=== PATIENT | female | born 1950 | race Caucasian/White ===

== ENCOUNTER 2016-06-08 16:47 | Emergency (ER) | payer BC, OTHER ==
[2016-06-08 17:53] VITALS: BP 139/68
--- NOTE | 2016-06-08 19:58 | RAD ---
INDICATION: Fever. Cough, wheezing. Asthma. History of varicella pneumonia. Headache. COMPARISON: February 16, 2013 CT. TECHNIQUE: Dual energy PA and routine lateral views of the chest were obtained. REPORT: Moderate coarsening and rarefaction of the interstitial markings. Multiple bilateral calcified unchanged from the 2013 CT. Negative for alveolar consolidation. Clear pleural spaces. The heart, pulmonary vasculature, and mediastinal contours are unremarkable. Anterior C5-C7 cervical fusion hardware. IMPRESSION: Stigmata of prior granulomatous disease and chronic obstructive pulmonary disease. No evidence for pneumonia.
[2016-06-08] MEDS ORDERED: DOXYcycline CAP(*) 100 MG PO ONE (20:10)
--- NOTE | 2016-06-08 20:24 | UC ---
Throat Pain/Nasal Girish HPI - HPI Summary HPI Summary: FOUR DAYS OF COUGH AND SINUS CONGEESTION AND RIGHT SIDED FACIAL PRESSURE. HEAVY SMOKER WITH HISTORY OF PNEUMONIA AND GRANULOMATOUS DISEASE. NO KNOWN FEVER. - History of Current Complaint Chief Complaint: UCRespiratory Stated Complaint: SINUS PROBLEMS Time Seen by Provider: 06/08/16 19:16 Hx Obtained From: Patient Hx Last Menstrual Period: hysterectomy Onset/Duration: Gradual Onset, Lasting Days, Worse Since - TODAY Severity: Moderate Cough: Nonproductive Associated Signs & Symptoms: Positive: Hoarseness, Sinus Discomfort, Nasal Discharge - Epiglottits Risk Factors Epiglottis Risk Factors: Negative - Allergies/Home Medications Allergies/Adverse Reactions: Allergies Allergy/AdvReac Type Severity Reaction Status Date / Time Adhesive Tape Allergy Blisters Verified 04/02/12 10:42 Aspirin Allergy FULL BODY Verified 04/02/12 10:42 RASH Indomethacin [From Indocin] Allergy gi bleed Verified 02/16/13 09:34 Metformin Allergy CHRONIC Verified 04/02/12 10:42 DIARRHEA Prochlorperazine Allergy DYSTONIC Verified 04/02/12 10:42 [From Compazine] Home Medications: Home Medications Cholecalciferol TAB* [Vitamin D TAB*] 06/08/16 [History] DULoxetine DR CAP* [Cymbalta CAP*] 06/08/16 [History] Diazepam TAB(*) [Valium TAB(*)] 06/08/16 [History] Misc Natural Products [Osteo Bi-Flex Joint Shiel] 06/08/16 [History] Oxycodone TAB(NF) [Oxycodone HCl 10 MG] 06/08/16 [History] amLODIPine TAB* [Norvasc TAB*] 06/08/16 [History] predniSONE TAB* [Deltasone TAB*] 06/08/16 [History] PMH/Surg Hx/FS Hx/Imm Hx Previously Healthy: Yes Endocrine History Of: Reports: Diabetes - TYPE 2 OF 07/01/13 NOT TAKING MEDICATION FOR IT Cardiovascular History Of: Reports: Hypertension - meds Denies: Cardiac Disorders, Pacemaker/ICD Respiratory History Of: Reports: Asthma - with uri, Bronchitis Denies: COPD GI/ History Of: Denies: Renal Disease Neurological History Of: Reports: Migraine - OPTHALMIC R/T CERVICAL SPASM Psychological History Of: Reports: Depression - ON MEDICATION - Surgical History Surgical History: Yes Surgery Procedure, Year, and Place: APPENDIX, PARTIAL HYSTERECTOMY, , LEFT ARM FX WITH PLATE IN IT, TUBAL, COMPLETE TEETH REMOVAL,CSP FUSION04/04 - Family History Known Family History: Positive: Respiratory Disease - Social History Occupation: Retired Lives: With Family Alcohol Use: None Substance Use Type: None, Prescribed Smoking Status (MU): Heavy Every Day Tobacco Smoker Cessation Counseling: Counseled 10+ Min Review of Systems Constitutional: Negative Skin: Negative Eyes: Negative ENT: Ear Ache, Nasal Discharge Respiratory: Cough Cardiovascular: Negative Gastrointestinal: Negative Genitourinary: Negative Motor: Negative Neurovascular: Negative Musculoskeletal: Negative Neurological: Negative Psychological: Negative All Other Systems Reviewed And Are Negative: Yes Physical Exam Triage Information Reviewed: Yes Appearance: Well-Appearing, No Pain Distress, Well-Nourished Vital Signs: Initial Vital Signs Temp 97.4 F 06/08/16 17:42 Pulse 92 06/08/16 17:42 Resp 18 06/08/16 17:42 BP 139/68 06/08/16 17:42 Pulse Ox 94 06/08/16 17:42 Vital Signs Reviewed: Yes Eye Exam: Normal Eyes: Positive: Conjunctiva Clear ENT: Positive: Hearing grossly normal, Pharynx normal, Pharyngeal erythema, Nasal congestion, TM dull Dental Exam: Normal Neck exam: Normal Neck: Positive: Supple, Nontender, No Lymphadenopathy Respiratory Exam: Other - COUGH Respiratory: Positive: Chest non-tender, Normal breath sounds, No respiratory distress, No accessory muscle use, Wheezing Cardiovascular Exam: Normal Cardiovascular: Positive: RRR, No Murmur, Pulses Normal Abdominal Exam: Normal Abdomen Description: Positive: Nontender, No Organomegaly Musculoskeletal Exam: Normal Musculoskeletal: Positive: Strength Intact, ROM Intact Neurological Exam: Normal Psychological Exam: Normal Psychological: Positive: Normal Response To Family Skin Exam: Normal Throat Pain/Nasal Course/Dx - Differential Dx/Diagnosis Differential Diagnosis/HQI/PQRI: Pharyngitis, Sinusitis, URI Provider Diagnoses: SINUSITIS. BRONCHITIS. COPD. HISTORY OF GRANULOMATOUS DISEASE Discharge - Discharge Plan Condition: Stable Disposition: HOME Prescriptions: DOXYcycline CAP(*) [DOXYcycline 100MG CAP(*)] 100 mg PO BID #20 cap Patient Education Materials: How to Stop Smoking (ED), Sinusitis (ED), Acute Bronchitis (ED), COPD (Chronic Obstructive Pulmonary Disease) (ED) Referrals: Midura,Moises T, MD [Primary Care Provider] -
== END 2016-06-08 20:29 | disposition home or self-care (01) ==
LOC: UCEAST 16:47
DX: J44.0 Chronic obstructive pulmonary disease with (acute) lower respiratory infection (principal); J20.9 Acute bronchitis, unspecified; J32.9 Chronic sinusitis, unspecified; I10 Essential (primary) hypertension; J45.909 Unspecified asthma, uncomplicated; F17.210 Nicotine dependence, cigarettes, uncomplicated
CPT/HCPCS: 71020; 99212; A9270-GY; G0463

== ENCOUNTER 2017-05-05 20:06 | Emergency (ER) | payer BC, MEDICARE ==
[2017-05-05] MEDS ORDERED: Carisoprodol TAB* 350 MG PO ONE (20:57)
[2017-05-05] MEDS ORDERED: HYDROcodone/ACETAMIN 5-325 MG* 1 TAB PO ONE (20:57)
--- NOTE | 2017-05-05 21:10 | ED ---
Back Pain - HPI Summary HPI Summary: Patient fell in driveway this evening---hit head and back and twisted left knee in the fall---patient reports no loc. but does have an acute exacerbation of her chronic neck and back pain and well as left knee pain-- - History of Current Complaint Chief Complaint: EDNeckComplaint Stated Complaint: FALL WITH INJURIES Time Seen by Provider: 05/05/17 20:45 Hx Obtained From: Patient Hx Last Menstrual Period: hysterectomy Onset/Duration: Sudden Onset, Lasting Hours, Still Present Onset/Duration: Traumatic - fall in drive way Timing: Constant Back Pain Location: Is Discrete @ - lumbar and thorasic spine Severity Initially: Moderate Severity Currently: Moderate Pain Intensity: 6 Pain Scale Used: 0-10 Numeric Character: Aching, Stiffness Aggravating Symptom(s): Movement Alleviating Symptom(s): Nothing Associated Signs And Symptoms: Positive: Negative Related History: Similar Episode Dx As, Previous Back Injury - Allergies/Home Medications Allergies/Adverse Reactions: Allergies Allergy/AdvReac Type Severity Reaction Status Date / Time Adhesive Tape Allergy Blisters Verified 04/02/12 10:42 aspirin Allergy Rash And Verified 05/05/17 20:17 Itching indomethacin [From Indocin] Allergy GI Upset Verified 05/05/17 20:17 metformin Allergy Diarrhea Verified 05/05/17 20:17 prochlorperazine Allergy Dizziness Verified 05/05/17 20:18 [From Compazine] PMH/Surg Hx/FS Hx/Imm Hx Previously Healthy: No Endocrine/Hematology History: Reports: Hx Diabetes - TYPE 2 OF 07/01/13 NOT TAKING MEDICATION FOR IT Cardiovascular History: Reports: Hx Hypertension - meds, Hx Peripheral Vascular Disease - BILATERAL LEGS VARICOSE VEINS Denies: Hx Pacemaker/ICD Respiratory History: Reports: Hx Asthma - with uri, Other Respiratory Problems/ Disorders - HX PNEUMONIA (caused by varicella), LUNG SCARRING, AND LEGIONNAIRES DISEASE Denies: Hx Chronic Obstructive Pulmonary Disease (COPD) History: Denies: Hx Dialysis, Hx Renal Disease Sensory History: Reports: Hx Contacts or Glasses - GLASSES Denies: Hx Hearing Aid Opthamlomology History: Reports: Hx Contacts or Glasses - GLASSES Neurological History: Reports: Hx Migraine - OPTHALMIC R/T CERVICAL SPASM Psychiatric History: Reports: Hx Depression - ON MEDICATION Denies: Hx Panic Disorder - Cancer History Hx Hematologic Symptoms: No Hx Chemotherapy: No - Surgical History Surgery Procedure, Year, and Place: APPENDIX, PARTIAL HYSTERECTOMY, , LEFT ARM FX WITH PLATE IN IT, TUBAL, COMPLETE TEETH REMOVAL,CSP FUSION04/04 Hx Anesthesia Reactions: No Infectious Disease History: No Infectious Disease History: Denies: Traveled Outside the [place] in Last 30 Days - Family History Known Family History: Positive: Respiratory Disease - Social History Occupation: Retired Lives: Alone Alcohol Use: None Substance Use Type: Reports: None, Prescribed Substance Use Comment - Amount & Last Used: narcotics Hx Tobacco Use: Yes Smoking Status (MU): Heavy Every Day Tobacco Smoker Cessation Counseling: Counseled 3+Min - 10 Min Review of Systems Constitutional: Negative Eyes: Negative ENT: Negative Cardiovascular: Negative Respiratory: Negative Gastrointestinal: Negative Genitourinary: Negative Positive: Arthralgia, Myalgia Skin: Negative Neurological: Negative Psychological: Normal All Other Systems Reviewed And Are Negative: Yes Physical Exam Triage Information Reviewed: Yes Vital Signs On Initial Exam: Initial Vitals Temp Pulse Resp BP Pulse Ox 97.3 F 91 16 155/70 94 05/05/17 20:14 05/05/17 20:14 05/05/17 20:14 05/05/17 20:14 05/05/17 20:14 Vital Signs Reviewed: Yes Appearance: Positive: Well-Nourished, Pain Distress - mild, Obese Skin: Positive: Warm, Skin Color Reflects Adequate Perfusion, Dry Head/Face: Positive: Normal Head/Face Inspection Eyes: Positive: Normal, EOMI, FERN, Conjunctiva Clear ENT: Positive: Normal ENT inspection, Hearing grossly normal, Pharynx normal, TMs normal, Uvula midline. Negative: Nasal congestion, Tonsillar swelling, Tonsillar exudate, Trismus, Muffled voice, Hoarse voice Neck: Positive: Supple, Tenderness @ - cervical thorasic area Respiratory/Lung Sounds: Positive: Clear to Auscultation, Breath Sounds Present Cardiovascular: Positive: Normal, RRR, Pulses are Symmetrical in both Upper and Lower Extremities, S1, S2 Abdomen Description: Positive: Nontender, No Organomegaly, Soft Bowel Sounds: Positive: Present Neurological: Positive: Normal, Sensory/Motor Intact, Alert, Oriented to Person Place, Time, CN Intact II-III, Facial Symmetry Psychiatric: Positive: Normal AVPU Assessment: Alert - [place] Coma Scale Best Eye Response: 4 - Spontaneous Best Motor Response: 6 - Obeys Commands Best Verbal Response: 5 - Oriented Coma Scale Total: 15 Diagnostics - Vital Signs Vital Signs Temp Pulse Resp BP Pulse Ox 05/05/17 20:14 97.3 F 91 16 155/70 94 - Laboratory Lab Statement: Any lab studies that have been ordered have been reviewed, and results considered in the medical decision making process. - Radiology No standard instances Xray Interpretation: No Acute Changes Radiology Interpretation Completed By: Radiologist - CT No standard instances CT Interpretation: No Acute Changes CT Interpretation Completed By: Radiologist Re-Evaluation - Re-Evaluation First Eval Change: Unchanged - i-stop checked report [id number] which confirms rx for soma 4 times and and hydrocode 2 po qid consistantly rx'd by Dr. English Back Pain Course/Dx - Course Assessment/Plan: continue pain meds as prescribed, follow blood pressure and continued pain with pcp, return to ed for worsening symptoms - Diagnoses Provider Diagnoses: Contusion, Hypertension not at goal Discharge - Discharge Plan Condition: Stable Disposition: HOME Patient Education Materials: Ibuprofen (By mouth), Contusion in Adults (ED), Hypertension (ED), R.I.C.E. Treatment (ED) Referrals: Moises English MD [Primary Care Provider] - 3 Days
--- NOTE | 2017-05-05 22:11 | RAD ---
INDICATION: Back pain after a fall in a patient with chronic back pain and history of cervical spine fusion TECHNIQUE: 6 views of the cervical spine, 4 views of the thoracic spine and 5 views of the lumbar spine were obtained. FINDINGS: Plate-screw fixation is seen anteriorly adjacent to the C5, 6 and 7 vertebral bodies. There is straightening of the normal cervical lordosis. The vertebral bodies are otherwise appropriately aligned. Degenerative changes of the thoracic spine includes loss of intervertebral disc height. The vertebral bodies are appropriately aligned in the AP and lateral projections. Degenerative changes of the lumbar spine includes loss of intervertebral disc height. The vertebral bodies are otherwise intact and appropriately aligned. Incidentally noted is coarse calcification of the lower abdominal aorta. IMPRESSION: Degenerative changes of the spine without radiographically apparent acute fracture or dislocation. If the patient's symptoms persist, follow-up imaging is recommended.
--- NOTE | 2017-05-05 22:12 | RAD ---
INDICATION: Left knee pain after a fall COMPARISON: None TECHNIQUE: 4 view radiograph of the left knee. FINDINGS: The visualized bones are well-corticated and properly aligned. Degenerative changes of the left knee include narrowing of the lateral compartment with marginal osteophyte formation. There is no radiographic evidence of joint effusion. There is no acute fracture, dislocation or other focal bony abnormality. IMPRESSION: Degenerative changes of the left knee without radiographically apparent acute fracture or dislocation. If the patient's symptoms persist, follow-up imaging is recommended.
[2017-05-05 23:27] VITALS: BP 147/79
--- NOTE | 2017-05-06 07:16 | RAD ---
INDICATION: Head injury. COMPARISON: Comparison is made with a prior CT of the brain from April 19, 2007. TECHNIQUE: Contiguous axial sections of the brain were obtained from the skull base to the vertex without contrast. FINDINGS: The ventricles, cisterns and sulci are within normal limits. No significant focal abnormality or mass effect is seen. There is no evidence for hemorrhage. No significant focal osseous abnormality is seen. The visualized portion of the paranasal sinuses and mastoid air cells appear clear. IMPRESSION: NO EVIDENCE FOR ACUTE INTRACRANIAL ABNORMALITY.
== END 2017-05-05 23:20 | disposition home or self-care (01) ==
LOC: ED 20:06
DX: S09.90XA Unspecified injury of head, initial encounter (principal); M54.9 Dorsalgia, unspecified; S89.92XA Unspecified injury of left lower leg, initial encounter; W19.XXXA Unspecified fall, initial encounter; Y92.480 Sidewalk as the place of occurrence of the external cause; G89.29 Other chronic pain; M47.816 Spondylosis without myelopathy or radiculopathy, lumbar region; M47.814 Spondylosis without myelopathy or radiculopathy, thoracic region; F17.200 Nicotine dependence, unspecified, uncomplicated; Z88.8 Allergy status to other drugs, medicaments and biological substances
CPT/HCPCS: 70450; 72050; 72070; 72110; 99282; A9270-GY

== ENCOUNTER 2017-11-15 14:45 | Emergency (ER) | payer MEDICARE ==
--- NOTE | 2017-11-15 14:51 | UC ---
Complaint Female HPI - HPI Summary HPI Summary: 67 yo female presents with urinary burning, urgency, and frequency since yesterday. She tells me that when she feels the urge to urinate she will need to immediately hurry to the bathroom to go because she has difficulty holding it. There have been two instances since yesterday where she has lost control of her bladder due to this. When she does urinate - toward the end of the stream she will feel burning and stinging sensation. She does have a history of chronic low back pain and tells me that, according to her MRI about a month ago , she has severe spinal stenosis around her L5 region. She is currently being followed by pain management and has an appointment to see neurosurgery in November for further evaluation. She does not feel that her pain or numbness is increased. Denies fever, chills, abdominal pain, n/v/d/c, hematuria, flank pain, saddle anesthesia, or loss of bowel control. - History Of Current Complaint Stated Complaint: FREQ URINATION Time Seen by Provider: 11/15/17 14:50 Hx Obtained From: Patient Hx Last Menstrual Period: hysterectomy Onset/Duration: Sudden Onset Severity Initially: Mild Severity Currently: Mild Pain Intensity: 1 Pain Scale Used: 0-10 Numeric - Allergies/Home Medications Allergies/Adverse Reactions: Allergies Allergy/AdvReac Type Severity Reaction Status Date / Time Adhesive Tape Allergy Blisters Verified 11/15/17 14:52 aspirin Allergy Rash And Verified 11/15/17 14:52 Itching indomethacin [From Indocin] Allergy GI Upset Verified 11/15/17 14:52 metformin Allergy Diarrhea Verified 11/15/17 14:52 prochlorperazine Allergy Dizziness Verified 11/15/17 14:52 [From Compazine] Home Medications: Home Medications HYDROcodone/ACETAMIN 5-325 MG* [[place] 5-325 TAB*] 2 tab PO Q4HR 11/15/17 [ History Confirmed 11/15/17] PMH/Surg Hx/FS Hx/Imm Hx - Additional Past Medical History Additional PMH: Chronic LBP Cardiovascular History: Hypertension Psychological History: Anxiety - Surgical History Surgical History: Yes Surgery Procedure, Year, and Place: APPENDIX, PARTIAL HYSTERECTOMY, , LEFT ARM FX WITH PLATE IN IT, TUBAL, COMPLETE TEETH REMOVAL,CSP FUSION04/04 - Family History Known Family History: Positive: Respiratory Disease - Social History Lives: With Family Alcohol Use: None Substance Use Type: Prescribed Substance Use Comment - Amount & Last Used: narcotics Smoking Status (MU): Heavy Every Day Tobacco Smoker Review of Systems Constitutional: Negative Skin: Negative Respiratory: Negative Cardiovascular: Negative Gastrointestinal: Negative Genitourinary: Dysuria, Frequency, Urgency Neurological: Negative Psychological: Negative All Other Systems Reviewed And Are Negative: Yes Physical Exam - Summary Physical Exam Summary: GENERAL: NAD. WDWN. No pain distress. SKIN: No rashes, sores, lesions, or open wounds. NECK: Supple. Nontender. No lymphadenopathy. CHEST: CTAB. No r/r/w. No accessory muscle use. Breathing comfortably and in no distress. CV: RRR. Without m/r/g. Pulses intact. Cap refill <2seconds ABDOMEN: Soft. NTTP. No distention or guarding. No CVA tenderness. Bowel sounds present MSK: Strength symmetric B/L LEs including dorsiflexion and plantar flexion. NEURO: Alert. Sensations symmetric and intact L3-S1. CN II-XII grossly intact. PSYCH: Age appropriate behavior. Triage Information Reviewed: Yes Vital Signs: Vital Signs: Temp Pulse Resp BP Pulse Ox 96.6 F 90 18 164/95 99 11/15/17 14:48 11/15/17 14:48 11/15/17 14:48 11/15/17 14:48 11/15/17 14:48 Laboratory Tests 11/15/17 15:07 POC Urine Color [place] POC Urine Clarity Cloudy POC Urine pH 6.5 POC Ur Specif [place] >= 1.030 POC Urine Protein 3+ A POC Ur Glucose (UA) Negative POC Urine Ketones Trace A POC Urine Blood 3+ A POC Urine Nitrite Positive A POC Urine Bilirubin 1+ A POC Urine Urobilinogen 1.0 POC U Leukocyte Esteras 1+ A Vital Signs Reviewed: Yes Complaint Female Dx - Course Course Of Treatment: Pt declined rectal exam for sphincter tone. UA with signs of infection. I had a long conversation with the pt that her urinary symptoms and incontinence could be explained by her UTI, but made her aware of red flag symptoms of cauda equina syndrome and if she were to develop any of these or if her symptoms persist despite anbx treatment - should call 911 or go to ED. She was agreeable to the plan. - Differential Dx/Diagnosis Provider Diagnoses: UTI. Urinary incontinence. Low back pain Discharge - Sign-Out/Discharge Documenting (check all that apply): Patient Departure All imaging exams completed and their final reports reviewed: No Studies - Discharge Plan Condition: Stable Disposition: HOME Prescriptions: Ciprofloxacin HCl [Cipro 500 MG TAB] 500 mg PO BID #10 tab Patient Education Materials: Urinary Tract Infection in Women (ED) Referrals: Moises English MD [Primary Care Provider] - Additional Instructions: If you develop a fever, shortness of breath, chest pain, new or worsening symptoms - please call your PCP or go to the ED. Your blood pressure was high at todays visit. Please see your primary provider within 4 weeks for recheck and re-evaluation. 1) If you developed numbness or tingling in your groin region or if you develop loss of bowel function - please call 911 or go directly to the ER - Billing Disposition and Condition Condition: STABLE Disposition: Home
[2017-11-15 14:52] VITALS: BP 164/95
== END 2017-11-15 15:28 | disposition home or self-care (01) ==
LOC: UCEAST 14:45
DX: N39.0 Urinary tract infection, site not specified (principal); R32 Unspecified urinary incontinence; F17.200 Nicotine dependence, unspecified, uncomplicated; I10 Essential (primary) hypertension; Z91.09 Other allergy status, other than to drugs and biological substances; Z88.6 Allergy status to analgesic agent; Z88.8 Allergy status to other drugs, medicaments and biological substances; M54.5 Low back pain
CPT/HCPCS: 81003; 87077; 87086; 87186; 99212; G0463

== ENCOUNTER 2019-06-17 11:01 | Emergency (ER) | payer MEDICARE, OTHER ==
--- NOTE | 2019-06-17 11:26 | ED ---
Respiratory - HPI Summary HPI Summary: 69 year old F presenting to [facility] with a chief complaint of hemoptysis since this morning. Patient reports a chronic cough for over 4 months with thick yellow phlegm. The patient rates the pain 2/10 in severity. Symptoms aggravated by nothing. Symptoms alleviated by nothing. Patient reports that she has been treated with multiple rounds of antibiotics including Doxycycline. She denies any fever, sore throat, vomiting, diarrhea, sick contacts, recent travel or immobilization, unilateral leg swelling, a history of blood clots, or being prescribed blood thinners. Medication list reviewed. Allergy list reviewed. Home Medications Medication Instructions Recorded Confirmed Type Albuterol HFA INHALER* 2 puff PO PRN 03/25/12 04/02/12 History Multivitamin 1 tab PO BEDTIME 03/25/12 04/02/12 History Soma 350 mg PO Q4H 03/25/12 04/02/12 History Zyrtec 1 tab PO BEDTIME 03/25/12 04/02/12 History Cholecalciferol TAB* [Vitamin D 1 tab PO WEEKLY 06/08/16 History TAB*] DULoxetine DR CAP* [Cymbalta CAP*] 1 tab PO DAILY 06/08/16 History Diazepam TAB(*) [Valium TAB(*)] 1 tab PO Q4HR PRN 06/08/16 History Oxycodone TAB(NF) [Oxycodone HCl 1 tab PO Q4HR PRN 06/08/16 History 10 MG] amLODIPine TAB* [Norvasc TAB*] 1 tab PO DAILY 06/08/16 History Ciprofloxacin HCl [Cipro 500 MG 500 mg PO BID #10 tab 11/15/17 Rx TAB] HYDROcodone/ACETAMIN 5-325 MG* 2 tab PO Q4HR 11/15/17 11/15/17 History [[place] 5-325 TAB*] - History of Current Complaint Chief Complaint: EDShortnessOfBreath Stated Complaint: COUGHING UP BLOOD Time Seen by Provider: 06/17/19 11:09 Hx Obtained From: Patient Onset/Duration: Lasting Weeks Timing: Constant Current Severity: Mild Pain Intensity: 2 Character: Cough (Productive) Sputum Color: Yellow Aggravating Factor(s): Nothing Alleviating Factor(s): Nothing Associated Signs and Symptoms: Hemoptysis - Allergy/Home Medications Allergies/Adverse Reactions: Allergies Allergy/AdvReac Type Severity Reaction Status Date / Time Adhesive Tape Allergy Blisters Verified 06/17/19 11:12 aspirin Allergy Rash And Verified 06/17/19 11:12 Itching indomethacin [From Indocin] Allergy GI Upset Verified 06/17/19 11:12 metformin Allergy Diarrhea Verified 06/17/19 11:12 prochlorperazine Allergy Dizziness Verified 06/17/19 11:12 [From Compazine] Home Medications: Home Medications Cholecalciferol TAB* [Vitamin D TAB*] 1.25 mg PO WEEKLY 06/08/16 [History Confirmed 06/17/19] DULoxetine DR CAP* [Cymbalta CAP*] 30 mg PO DAILY 06/08/16 [History Confirmed ] Diazepam TAB(*) [Valium TAB(*)] 5 - 10 mg PO BID 06/08/16 [History Confirmed ] amLODIPine TAB* [Norvasc TAB*] 10 mg PO DAILY 06/08/16 [History Confirmed ] Carisoprodol TAB* [Soma TAB*] 350 mg PO QID PRN 06/17/19 [History Confirmed ] Cetirizine* [ZyrTEC 10 MG TAB*] 10 mg PO DAILY 06/17/19 [History Confirmed 06/16] DULoxetine CAP* [Cymbalta CAP*] 60 mg PO DAILY 06/17/19 [History Confirmed ] Docusate CAP* [Colace Cap*] 200 mg PO BID 06/17/19 [History Confirmed 06/17/19] Doxycycline TAB(NF) [Doxycycline TAB (NF)] 50 mg PO BID 06/17/19 [History Confirmed 06/17/19] Hydrocodone/Acetaminophen [Hydrocodone/Acetaminophen 10-325 mg] 1 tab PO Q4H PRN MDD 8 tabs 06/17/19 [History Confirmed 06/17/19] Levofloxacin TAB* [Levaquin TAB*] 500 mg PO DAILY 06/17/19 [History Confirmed ] Meloxicam(NF) [Mobic(NF)] 15 mg PO DAILY 06/17/19 [History Confirmed 06/17/19] Multivitamins/Minerals TAB* [Theragran/minerals TAB*] 1 tab PO DAILY 06/17/19 [ History Confirmed 06/17/19] Psyllium Husk [Sm Fiber] 400 mg PO BID 06/17/19 [History Confirmed 06/17/19] Rosuvastatin (NF) [Crestor (NF)] 5 mg PO BEDTIME 06/17/19 [History Confirmed ] SUMAtriptan TAB* [Imitrex TAB*] 50 mg PO ONCE PRN 06/17/19 [History Confirmed ] Turmeric 400 mg PO DAILY 06/17/19 [History Confirmed 06/17/19] glipiZIDE TAB* [Glucotrol TAB*] 5 mg PO BID 06/17/19 [History Confirmed 06/17/19 ] PMH/Surg Hx/FS Hx/Imm Hx Endocrine/Hematology History: Reports: Hx Diabetes Cardiovascular History: Reports: Hx Hypertension - meds, Hx Peripheral Vascular Disease - BILATERAL LEGS VARICOSE VEINS Denies: Hx Pacemaker/ICD Respiratory History: Reports: Hx Asthma - with uri, emphysema, Other Respiratory Problems/Disorders - HX PNEUMONIA (caused by varicella), LUNG SCARRING, AND LEGIONNAIRES DISEASE Denies: Hx Chronic Obstructive Pulmonary Disease (COPD) History: Denies: Hx Dialysis, Hx Renal Disease Sensory History: Reports: Hx Contacts or Glasses - GLASSES Denies: Hx Hearing Aid Opthamlomology History: Reports: Hx Contacts or Glasses - GLASSES Neurological History: Reports: Hx Migraine - OPTHALMIC R/T CERVICAL SPASM Psychiatric History: Reports: Hx Depression - ON MEDICATION Denies: Hx Panic Disorder - Cancer History Hx Hematologic Symptoms: No Hx Chemotherapy: No - Surgical History Surgery Procedure, Year, and Place: APPENDIX, PARTIAL HYSTERECTOMY, , LEFT ARM FX WITH PLATE IN IT, TUBAL, COMPLETE TEETH REMOVAL,CSP FUSION04/04 Hx Anesthesia Reactions: No Infectious Disease History: No Infectious Disease History: Denies: Traveled Outside the [place] in Last 30 Days - Family History Known Family History: Positive: Respiratory Disease - Social History Alcohol Use: None Substance Use Type: Reports: Prescribed Substance Use Comment - Amount & Last Used: pain medication Hx Tobacco Use: Yes Smoking Status (MU): Heavy Every Day Tobacco Smoker Review of Systems Negative: Fever Negative: Sore Throat Positive: Cough, Other - Hemoptysis Negative: Vomiting, Diarrhea All Other Systems Reviewed And Are Negative: Yes Physical Exam - Summary Physical Exam Summary: Constitutional: Well-developed, Well-nourished, Alert. (-) Distressed Skin: Warm, Dry HENT: Normocephalic; Atraumatic Eyes: Conjunctiva normal Neck: Musculoskeletal ROM normal neck. (-) JVD, (-) Stridor, (-) Tracheal deviation Cardio: Rhythm regular, rate normal, Heart sounds normal; Intact distal pulses; Radial pulses are 2+ and symmetric. (-) Murmur Pulmonary/Chest wall: Effort normal. (-) Respiratory distress, (-) Wheezes, (-) Rales Abd: Soft, (-) tenderness, (-) Distension, (-) Guarding, (-) Rebound Musculoskeletal: (-) Edema Lymph: (-) Cervical adenopathy Neuro: Alert, Oriented x3 Psych: Mood and affect Normal Triage Information Reviewed: Yes Vital Signs On Initial Exam: Initial Vitals Temp Pulse Resp BP Pulse Ox 97.3 F 96 18 166/86 98 06/17/19 11:09 06/17/19 11:09 06/17/19 11:09 06/17/19 11:09 06/17/19 11:09 Vital Signs Reviewed: Yes Procedures - Sedation Patient Received Moderate/Deep Sedation with Procedure: No Diagnostics - Vital Signs Vital Signs Temp Pulse Resp BP Pulse Ox 06/17/19 11:09 97.3 F 96 18 166/86 98 - Laboratory Result Diagrams: 06/17/19 11:32 06/17/19 11:32 Lab Statement: Any lab studies that have been ordered have been reviewed, and results considered in the medical decision making process. - Radiology Chest x-ray Radiology Interpretation Completed By: Radiologist Summary of Radiographic Findings: #. No evidence for pneumonia. #. Stigmata of prior granulomatous disease. ED physician has reviewed this report. Disposition - Course Course Of Treatment: Patient is here with small volume hemoptysis. Patient is overall well-appearing and does have chronic cough. Patient had blood work performed which was grossly unremarkable. Patient had a negative d-dimer for PE. Patient had negative chest x-ray for pneumonia. Patient was tested for covid 19 and given quarantine instructions - Diagnoses Provider Diagnoses: Suspected COVID-19 virus infection, Cough, Hemoptysis Discharge ED - Sign-Out/Discharge Documenting (check all that apply): Patient Departure - Discharge Plan Condition: Stable Disposition: HOME Patient Education Materials: Hemoptysis (ED), Acute Cough (ED) Forms: COVID-19 Tested & Isolation Referrals: Moises English MD [Primary Care Provider] - Additional Instructions: Return to the emergency department if you are coughing up a large volume of blood, feel like you are going to pass out, or have chest pain, a high fever, or any other concerning symptoms. You were seen in the emergency department for coronavirus rule out. The department of health will contact you within 24 hours. Due to the pandemic, you should stay in your house and self quarantine. See the separate quarantine paper for further instructions. You should wear a mask if you're outside of your personal room. We encourage handwashing as well as limited contact with other people including the elderly and the immunocompromised. If any studies were not completed at the time of discharge you will be called with the relevant results. Return to emergency department for severe trouble breathing, worsening or concerning symptoms It was a pleasure taking care of you today. - Billing Disposition and Condition Condition: STABLE Disposition: Home - Attestation Statements Document Initiated by Bridger: Yes Documenting Scribe: Maria Luisa Peace Provider For Whom Bridger is Documenting (Include Credential): Sharif Herrera MD Scribe Attestation: Maria Luisa Scott scribed for Sharif Herrera MD on 06/17/19 at 1385. Scribe Documentation Reviewed: Yes Provider Attestation: The documentation as recorded by the Maria Luisa renee accurately reflects the service I personally performed and the decisions made by me, Sharif Herrera MD Status of Scribe Document: Viewed
[2019-06-17 11:50] LABS: ABS Basophils 0.1 10^3/ul (0-0.2); ABS Eosinophils 0.6 10^3/ul (0-0.6); ABS Lymphocytes 2.6 10^3/ul (1.0-4.8); ABS Monocytes 0.7 10^3/ul (0-0.8); ABS Neutrophils 3.5 10^3/ul (1.5-7.7); Eosinophil % 8.4 %; Hematocrit 42 % (35-47); Hemoglobin 14.8 g/dL (12.0-16.0); Lymphocyte % 34.4 %; Mean Corpuscular HGB Conc 35 g/dL (31-36); Mean Corpuscular Hemoglobin 34 pg (27-31); Mean Corpuscular Volume 95 fL (80-97); Mean Platelet Volume 8.8 fL (7.4-10.4); Platelet Count 195 10^3/uL (150-450); Red Blood Count 4.39 10^6 /uL (3.70-4.87); Red Cell Distribution Width 13 % (10-15); White Blood Count 7.4 10^3/uL (3.5-10.8)
--- OUTSIDE RECORDS SUMMARY | 2019-06-17 11:51 | XMS REPORT | Continuity of Care Document ---
:1950 Author Organization [address] [place] [address] [place] [id number] Phone Care Team Providers Name Role Phone LORENA SAMUEL MD Unavailable Unavailable Allergies, Adverse Reactions, Alerts Substance Reaction Status PROCHLORPERAZINE MALEATE Active PROCHLORPERAZINE EDISYLATE Active prochlorperazine Active aspirin Active Medications Medication Instructions Dosage Effective Dates Status Comments (start - stop) hydrocodone 10 take 1 tablet by 1.00 tablet - Active mg-acetaminophen 325 oral route every 4 mg tablet - 6 hours as needed for pain Soma 350 mg tablet take 1 tablet by 350 MG - Active oral route 4 times every day and at bedtime glipizide 5 mg take 1 tablet by 5 MG - Active tablet oral route 2 times every day before meals duloxetine 60 mg take 1 capsule by 60 MG - Active capsule,delayed oral route every release day duloxetine 30 mg take 1 capsule by 30 MG - Active capsule,delayed oral route every release day amlodipine 10 mg take 1 tablet by 10 MG - Active tablet oral route every day meloxicam 15 mg take 1 tablet by 15 MG - Active tablet oral route every day doxycycline hyclate take 1 tablet by 100 MG - Active 100 mg tablet oral route 2 times every day Problems Condition Effective Dates (start - stop) Clinical Status Low back pain associated with a spinal disorder other than radiculopathy or spinal stenosis 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, lumbar region Spondyls w/o myelopathy or - radiculopathy, lumbosacr region Other intervertebral disc - displacement, lumbar region Other intervertebral disc - displacement, lumbosacral region Oth specific arthropathies, NEC, oth - site Spinal stenosis, lumbar region without - neurogenic sheila Procedures Procedure Date Procedure Unknown Results Test Name Date and Time Measure Units Reference Range Abnormal Flag Status Comments Unknown Encounters Encounter Practice Location Reason(s) Diagnoses Date Provider Providers Description For Visit Copied on Encounter 0001 - [facility] [employer], Management LORENA. [phone] [facility], [facility], [place], [place], [place] [address], [place], [place], tel: [phone] tel: [phone] 0001 - [facility] JOCELYN [employer], Neurosurgery associated with a 0-201 ADEKENDAL. 46 33-57 spinal disorder 9 [facility] other than [facility], radiculopathy or [facility] spinal [place], [place], stenosisSpondylos [phone], is w/o myelopathy tel: tel: or radiculopathy, [phone] lumbar regionSpondyls w/o myelopathy or radiculopathy, lumbosacr regionOther intervertebral disc displacement, lumbar regionOther intervertebral disc displacement, lumbosacral regionOth specific arthropathies, NEC, oth siteSpinal stenosis, lumbar region without neurogenic sheila Family History Family Member Diagnosis Age At Onset Unknown Immunizations Vaccine Date Status Comments Immunization Unknown Payers Payer name Insurance type Covered green party ID Authorization(s) Workers Compensation [id number] Social History Type Description Quantity Date Captured Comments Unknown Vital Signs Date / Height Weight BMI Pulse Blood Temperature Respiratory Body Head BMI Time: Rate Pressure Rate Surface Circumference percentile Area Unknown Chief Complaint And Reason For Visit No information Reason For Referral Reason For Referral Unknown Plan Of Care Date Type Action Status Referral Ordered: ordered LORENA SAMUEL MD -Pain Management (related to Low back pain associated with a spinal disorder other than radiculopathy or spinal stenosis) Referral Referred To: ordered LORENA SAMUEL MD [address] [facility] Floor 2 [place], [place], [facility] [phone] Ordered: Referrals: Pain Management. LORENA SAMUEL MD Date Type Problem Goal Intervention Status Start Date Unknown History Of Present Illness Encounter Date Complaint History Of Present Illness No information Functional Status Encounter Date Functional Assessment Cognitive Assessment Unknown Medications Administered Medication Instructions Dosage Effective Dates (start - stop) Status Comments Drug Treatment Unknown Instructions Date Instruction Additional Information Risks and benefits of new Related to Low back pain associated medication discussed. with a spinal disorder other than radiculopathy or spinal stenosis
--- OUTSIDE RECORDS SUMMARY | 2019-06-17 11:51 | XMS REPORT | Continuity of Care Document ---
:1950 Author Organization [facility] Address [address] [address] Phone Care Team Providers Name Role Phone [...] on Encounter 0001 - [facility] [employer], Management LORENA. [phone] [facility], [facility], [place], [place], [place] [address], [place], [place], tel: [phone] tel: [phone] 0001 - [facility] JOCELYN [employer], Neurosurgery associated with a 0-201 ADESH. 46 33-[address] [facility] other than [facility], radiculopathy or [facility] spinal [place], [place], stenosisSpondylos [phone], is w/o myelopathy tel: tel: or radiculopathy, [phone] lumbar regionSpondyls w/o myelopathy or radiculopathy, lumbosacr regionOther intervertebral disc displacement, lumbar regionOther intervertebral disc displacement, lumbosacral regionOth specific arthropathies, NEC, oth siteSpinal stenosis, lumbar region without neurogenic sheila Family History Family Member Diagnosis Age At Onset Unknown Immunizations Vaccine Date Status Comments Immunization Unknown Payers Payer name Insurance type Covered republican ID Authorization(s) Workers Compensation [id number] Social History Type Description Quantity Date Captured [...] Referred To: ordered LORENA SAMUEL MD [address] [facility] Floor 2 [place], [place], [facility] [phone] Ordered: Referrals: Pain Management. LORENA SAMUEL MD [...]
[2019-06-17 12:07] LABS: Albumin/Globulin Ratio 1.4 (1-3); BUN/Creatinine Ratio 29.2 (8-20); EGFR African American 109.7 (>60); EGFR Non-African American 90.6 (>60); Globulin 2.8 g/dL (2-4); Potassium 3.8 mmol/L (3.5-5.0); Total Bilirubin 0.3 mg/dL (0.2-1.0); Total Protein 6.8 g/dL (6.4-8.9)
[2019-06-17 12:23] LABS: Influenza A Molecular Negative (Negative); Influenza B Molecular Negative (Negative)
[2019-06-17 12:53] VITALS: BP 144/83
== END 2019-06-17 12:52 | disposition home or self-care (01) ==
LOC: ED 11:01
DX: R04.2 Hemoptysis (principal); Z79.899 Other long term (current) drug therapy; Z88.6 Allergy status to analgesic agent; E11.9 Type 2 diabetes mellitus without complications; I10 Essential (primary) hypertension; I73.9 Peripheral vascular disease, unspecified; F32.9 Major depressive disorder, single episode, unspecified; F17.210 Nicotine dependence, cigarettes, uncomplicated; Z20.828 Contact with and (suspected) exposure to other viral communicable diseases
CPT/HCPCS: 36415; 71045; 80053; 85025; 85379; 87635; 99283

== ENCOUNTER 2019-12-13 09:01 | Inpatient (IN) ==
[~2019-12-13 09:01] MED LIST: Buffered Lidocaine 1% SYRIN 1 ml INTRADERM ONE; Lactated Ringers 1000 ml BAG 1,000 ML IV SCH
[2019-12-13] MEDS ORDERED: ceFAZolin 2 GM PREMIX 2 GM/50 ML BAG ONE (09:15)
[2019-12-13] MEDS ORDERED: Buffered Lidocaine 1% SYRIN 1 ml INTRADERM ONE (09:15)
[2019-12-13] MEDS ORDERED: Propofol 10 MG/ML 20 ML BTL ONE ×2 (09:31→13:06)
[2019-12-13] MEDS ORDERED: Midazolam 2 mg/2 ml VIAL 1 mg/ml 2 ml VIAL (2 mg) ONE (09:31)
[2019-12-13] MEDS ORDERED: fentaNYL 100 mcg/2 ml 50 MCG/ML VIAL ONE ×2 (09:31→12:29)
[2019-12-13] MEDS ORDERED: Lidocaine 2% PF 5 ML VIAL ONE ×2 (09:32→11:32)
[2019-12-13] MEDS ORDERED: Dexamethasone IV 4 MG/ML VIAL 1 ml VIAL ONE (09:32)
[2019-12-13] MEDS ORDERED: Lidocaine 1% MPF 5 ML VIAL ONE (10:42)
[2019-12-13] MEDS ORDERED: ROPIVACAINE 5 MG/ML 30 ML BTL (0.5%) ONE ×2 (10:42→10:43)
[2019-12-13] MEDS ORDERED: Rocuronium 50 mg VIAL 10 mg/ml 5 ml VIAL (50 mg) ONE (11:32)
[2019-12-13] MEDS ORDERED: HYDROmorphone 1 MG/1 ML SYRINGE ONE ×3 (11:44→14:06)
[2019-12-13] MEDS ORDERED: Acetaminophen IV 1 GM/100ML 100 ML ONE (11:48)
[2019-12-13] MEDS ORDERED: Naloxone 0.4 mg VIAL 0.4 mg/ml 1 ml VIAL IV PRN (12:35)
[2019-12-13] MEDS ORDERED: DiMENhydriNATE IV 50 mg/ml 1 ml VIAL IV PUSH PRN (12:35)
[2019-12-13] MEDS ORDERED: DiMENhydriNATE IV 50 mg/ml 1 ml VIAL ONE (12:37)
[2019-12-13] MEDS ORDERED: diPHENhydraMINE 25 mg TAB PO PRN (13:12)
[2019-12-13] MEDS ORDERED: Magnesium Hydroxide LIQ 30 ML UDC PO PRN (13:12)
[2019-12-13] MEDS ORDERED: Ondansetron ODT 4 mg TAB 4 MG TAB PO PRN (13:12)
[2019-12-13] MEDS ORDERED: diPHENhydraMINE IV 50 MG/ML 1 ml VIAL (BENADRYL) IV PRN (13:12)
[2019-12-13] MEDS ORDERED: Lactulose 30 ml UDC PO PRN (13:12)
[2019-12-13] MEDS ORDERED: Ondansetron 4 mg VIAL 2 MG/ML 2 ml VIAL IV PRN (13:12)
[2019-12-13] MEDS ORDERED: oxyCODONE/Acetamin 5/325 mg TAB PO PRN (13:12)
[2019-12-13] MEDS ORDERED: ceFAZolin 1 GM ADVAN 1 GM in NS 0.9% 50 ML 50 ML IVPB SCH (14:00)
[2019-12-13] MEDS: HYDROmorphone 1 MG/1 ML SYRINGE IV PRN ×2 (14:06→14:12)
[2019-12-13] MEDS ORDERED: Morphine 4 MG/ML VIAL (1 ml) ONE (14:28)
[2019-12-13] MEDS: Morphine 2 MG/ML SYRINGE IV PRN ×3 (14:29→22:59)
[2019-12-13] MEDS ORDERED: Dextrose 50% Syringe 50 ml 25 GM/50 ML SYRINGE IV PUSH PRN (15:44)
[2019-12-13] MEDS: Lactated Ringers 1000 ml BAG 1,000 ML IV SCH (15:44)
[2019-12-13] MEDS ORDERED: Albuterol 2.5mg/3 ml (0.083%) NEB.SOLN INH PRN (15:55)
[2019-12-13] MEDS: Morphine ER 15 mg TAB ** extended release PO SCH (16:24)
[2019-12-13] MEDS: oxyCODONE/Acetamin 5/325 mg TAB PO PRN ×2 (19:34→23:54)
[2019-12-13] MEDS: Psyllium PAK PO SCH (20:47)
[2019-12-13] MEDS: ceFAZolin 1 GM ADVAN 1 GM in NS 0.9% 50 ML 50 ML IVPB SCH (20:53)
[2019-12-13] MEDS ORDERED: DULoxetine DR 30 mg CAP PO SCH (21:00)
[2019-12-13] MEDS ORDERED: DULoxetine DR 60 mg CAP PO SCH (21:00)
[2019-12-13] MEDS: Magnesium Hydroxide LIQ 30 ML UDC PO SCH (21:09)
[2019-12-13] MEDS: Varenicline 1 mg TAB (NF) PO SCH (21:09)
[2019-12-14] MEDS: Morphine ER 15 mg TAB ** extended release PO SCH (03:28)
[2019-12-14] MEDS: ceFAZolin 1 GM ADVAN 1 GM in NS 0.9% 50 ML 50 ML IVPB SCH ×2 (03:38→11:30)
[2019-12-14] MEDS: Lactated Ringers 1000 ml BAG 1,000 ML IV SCH (03:38)
[2019-12-14 06:55] LABS: Hematocrit 37 % (35-47); Mean Platelet Volume 8.6 fL (7.4-10.4); Platelet Count 200 10^3/uL (150-450)
[2019-12-14 07:09] LABS: BUN/Creatinine Ratio 21.1 (8-20); Calcium 8.8 mg/dL (8.6-10.3); EGFR African American 91.6 (>60); EGFR Non-African American 75.7 (>60)
[2019-12-14] MEDS: oxyCODONE/Acetamin 5/325 mg TAB PO PRN ×2 (07:22→11:28)
[2019-12-14] MEDS ORDERED: Vitamin THERAPEUTIC TAB PO SCH (09:00)
[2019-12-14] MEDS: Psyllium PAK PO SCH (09:14)
[2019-12-14] MEDS: Varenicline 1 mg TAB (NF) PO SCH (09:14)
[2019-12-14] MEDS: Magnesium Hydroxide LIQ 30 ML UDC PO SCH (09:15)
[2019-12-14 11:17] VITALS: BP 137/58
== END 2019-12-14 14:20 | disposition home health service (06) | DRG 470 ==
LOC: AA 09:01 → SSU 13:12
PROVIDERS: ADMIT Orthopaedic Surgery Adult Reconstructive Orthopaedic Surgery; ATTEND Orthopaedic Surgery Adult Reconstructive Orthopaedic Surgery

== ENCOUNTER 2021-05-13 12:47 | Inpatient (IN) ==
[2021-05-13] MEDS ORDERED: Albuterol 2.5mg/3 ml (0.083%) NEB.SOLN INH ONE (13:28)
[2021-05-13 13:54] LABS: Venous Bicarbonate HCO3 29.5 mmol/L (24-28)
[2021-05-13 14:00] LABS: ABS Eosinophils 0.3 10^3/ul (0-0.6); ABS Lymphocytes 0.9 10^3/ul (1.0-4.8); ABS Monocytes 0.8 10^3/ul (0-0.8); ABS Neutrophils 7.2 10^3/ul (1.5-7.7); Eosinophil % 2.9 %; Hematocrit 37 % (35-47); Hemoglobin 12.6 g/dL (12.0-16.0); Lymphocyte % 9.4 %; Mean Corpuscular HGB Conc 34 g/dL (31-36); Mean Corpuscular Hemoglobin 32 pg (27-31); Mean Corpuscular Volume 93 fL (80-97); Mean Platelet Volume 8.8 fL (7.4-10.4); Platelet Count 222 10^3/uL (150-450); Red Blood Count 3.95 10^6 /uL (3.70-4.87); Red Cell Distribution Width 13 % (10-15); White Blood Count 9.2 10^3/uL (3.5-10.8)
[2021-05-13 14:21] LABS: Albumin 3.5 g/dL (3.2-5.2); Albumin/Globulin Ratio 1.3 (1-3); Calcium 8.6 mg/dL (8.6-10.3); Globulin 2.8 g/dL (2-4); Potassium 4.2 mmol/L (3.5-5.0); Total Bilirubin 0.4 mg/dL (0.2-1.0); Total Protein 6.3 g/dL (6.4-8.9); eGFR CKD-EPI 93.9 (>60)
[2021-05-13 16:03] LABS: Urine Appearance Clear; Urine Bilirubin Negative (Negative); Urine Blood Negative (Negative); Urine Color Yellow; Urine Glucose Negative (Negative); Urine Ketones Negative (Negative); Urine Nitrite Negative (Negative); Urine Protein Negative (Negative); Urine Specific Gravity 1.024 (1.002-1.030); Urine Urobilinogen Negative (Negative)
[2021-05-13] MEDS ORDERED: Albuterol HFA INHALER 8 gm MDI INH PRN (19:28)
[2021-05-13] MEDS ORDERED: Nicotine GUM 4MG FRUIT FLAVOR PO PRN (19:28)
[2021-05-13] MEDS ORDERED: Dextrose 50% Syringe 50 ml 25 GM/50 ML SYRINGE IV PUSH PRN (19:43)
[2021-05-13] MEDS: Polyethylene Glycol 3350 17 GM PACKET PO SCH (23:11)
[2021-05-14] MEDS: VARENICLINE 1 MG PO SCH ×3 (01:32→21:42)
[2021-05-14 08:01] LABS: ABS Lymphocytes 0.8 10^3/ul (1.0-4.8); ABS Monocytes 0.8 10^3/ul (0-0.8); Eosinophil % 0.4 %; Hematocrit 38 % (35-47); Hemoglobin 12.9 g/dL (12.0-16.0); Lymphocyte % 7.7 %; Mean Corpuscular HGB Conc 34 g/dL (31-36); Mean Corpuscular Hemoglobin 32 pg (27-31); Mean Corpuscular Volume 93 fL (80-97); Platelet Count 208 10^3/uL (150-450); Red Blood Count 4.09 10^6 /uL (3.70-4.87); Red Cell Distribution Width 13 % (10-15); White Blood Count 10.8 10^3/uL (3.5-10.8)
[2021-05-14 08:16] LABS: Calcium 8.6 mg/dL (8.6-10.3); Potassium 3.5 mmol/L (3.5-5.0); eGFR CKD-EPI 99.6 (>60)
[2021-05-14] MEDS: DULoxetine DR 30 mg CAP PO SCH (09:07)
[2021-05-14] MEDS: Mometasone/Formoter 100/5 MDI INH SCH ×2 (09:09→19:04)
[2021-05-14] MEDS: Polyethylene Glycol 3350 17 GM PACKET PO SCH ×2 (09:23→21:16)
[2021-05-14] MEDS: Enoxaparin 40 MG/0.4 ML SYR SUBCUT SCH (12:02)
[2021-05-14] MEDS ORDERED: Iodixanol (CONTRAST) 320 MG/ML 100 ML SDV IV ONE (13:31)
[2021-05-14] MEDS: Amoxicillin/Clavul 500/125 TAB (Augmentin 500 mg tab) PO SCH (21:43)
[2021-05-14] MEDS: Azithromycin 500 mg/250 ml NS 500 MG/250 ML BAG IVPB SCH (21:46)
[2021-05-15] MEDS: Polyethylene Glycol 3350 17 GM PACKET PO SCH ×2 (07:20→20:13)
[2021-05-15] MEDS: Amoxicillin/Clavul 500/125 TAB (Augmentin 500 mg tab) PO SCH (07:41)
[2021-05-15] MEDS: DULoxetine DR 30 mg CAP PO SCH (07:41)
[2021-05-15] MEDS: VARENICLINE 1 MG PO SCH ×2 (07:42→20:14)
[2021-05-15] MEDS: Enoxaparin 40 MG/0.4 ML SYR SUBCUT SCH (07:43)
[2021-05-15] MEDS: Mometasone/Formoter 100/5 MDI INH SCH ×2 (07:46→19:34)
[2021-05-15] MEDS ORDERED: Calcium Carb (TUMS) 500 mg CHEW TAB PO PRN (11:22)
[2021-05-15] MEDS ORDERED: DULoxetine DR 60 mg CAP PO ONE ×2 (11:24→20:00)
[2021-05-15] MEDS: cefTRIAXone 1 gm/50 mL NS BAG 1 GM/50 ML BAG IVPB SCH (12:04)
[2021-05-15] MEDS ORDERED: Dextrose 50% Syringe 50 ml 25 GM/50 ML SYRINGE IV PUSH PRN (13:45)
[2021-05-15] MEDS: Azithromycin 500 mg/250 ml NS 500 MG/250 ML BAG IVPB SCH (20:07)
[2021-05-16 05:44] LABS: ABS Eosinophils 0.1 10^3/ul (0-0.6); ABS Lymphocytes 2.4 10^3/ul (1.0-4.8); ABS Monocytes 0.9 10^3/ul (0-0.8); ABS Neutrophils 5.8 10^3/ul (1.5-7.7); Eosinophil % 0.6 %; Hematocrit 38 % (35-47); Hemoglobin 12.7 g/dL (12.0-16.0); Lymphocyte % 25.8 %; Mean Corpuscular HGB Conc 34 g/dL (31-36); Mean Corpuscular Hemoglobin 31 pg (27-31); Mean Corpuscular Volume 93 fL (80-97); Mean Platelet Volume 8.8 fL (7.4-10.4); Platelet Count 244 10^3/uL (150-450); Red Blood Count 4.05 10^6 /uL (3.70-4.87); Red Cell Distribution Width 13 % (10-15); White Blood Count 9.2 10^3/uL (3.5-10.8)
[2021-05-16 06:03] LABS: Calcium 8.6 mg/dL (8.6-10.3); Potassium 3.2 mmol/L (3.5-5.0); eGFR CKD-EPI 100.5 (>60)
[2021-05-16] MEDS: Mometasone/Formoter 100/5 MDI INH SCH (07:48)
[2021-05-16] MEDS ORDERED: DULoxetine DR 30 mg CAP PO SCH ×2 (09:00→21:00)
[2021-05-16] MEDS: VARENICLINE 1 MG PO SCH (09:41)
[2021-05-16] MEDS: Polyethylene Glycol 3350 17 GM PACKET PO SCH (09:41)
[2021-05-16] MEDS: Potassium Chlor 20 meq TAB.ER PO SCH ×2 (09:42→13:00)
[2021-05-16] MEDS: Enoxaparin 40 MG/0.4 ML SYR SUBCUT SCH (09:43)
[2021-05-16 10:08] LABS: Magnesium 1.8 mg/dL (1.9-2.7)
[2021-05-16 11:02] VITALS: BP 128/61
[2021-05-16] MEDS: cefTRIAXone 1 gm/50 mL NS BAG 1 GM/50 ML BAG IVPB SCH (13:02)
== END 2021-05-16 15:15 | disposition home health service (06) | DRG 190 ==
LOC: EDHOLD 12:47 → MEDTELE 12:47 → ED 12:47 → SUATTDRO 18:21 → MED 05-14 10:44
PROVIDERS: ADMIT Internal Medicine; ATTEND Internal Medicine